=== PATIENT | male | born 1990 | race Caucasian/White ===

== ENCOUNTER 2019-01-06 13:30 | Emergency (ER) | payer OTHER ==
[~2019-01-06] VITALS: Ht 190.5 cm; Wt 142.9 kg
--- OUTSIDE RECORDS SUMMARY | 2019-01-06 13:32 | XMS REPORT | Continuity of Care Document ---
Author Author [employer] Organization [employer] Address Unknown Phone Unavailable Care Team Providers Care It Systems Manager Name Role Phone [employer] Unavailable Unavailable Problems No Data Provided for This Section Medications No Data Provided for This Section Allergies, Adverse Reactions, Alerts No Known Medication Allergies Immunizations No Data Provided for This Section Results No Data Provided for This Section Pathology Reports No Data Provided for This Section Diagnostic Reports No Data Provided for This Section Consultation Notes No Data Provided for This Section Discharge Summaries No Data Provided for This Section History and Physicals No Data Provided for This Section Vital Signs No Data Provided for This Section Encounters Location Location Details Encounter Type Encounter Number Reason For Visit Attending Provider ADM Date DC Date Status Source Outpatient [id number] [facility] 03/05/2015 Active [facility] Outpatient [id number] [facility] 12/01/2015 Active [facility] Procedures No Data Provided for This Section Assessment and Plan No Data Provided for This Section Plan of Care No Data Provided for This Section Social History No Data Provided for This Section Family History No Data Provided for This Section Advance Directives No Data Provided for This Section Functional Status No Data Provided for This Section
--- NOTE | 2019-01-06 15:26 | NUR ---
PATIENT BROUGHT TO TRIAGE. EVALUATED BY MELISSA Argueta
[2019-01-06] MEDS ORDERED: KETOROLAC TROMETHAMINE 60 MG/2 ML VIAL IM ONE (15:30)
[2019-01-06] MEDS ORDERED: KETOROLAC TROMETHAMINE 60 MG/2 ML VIAL ONE (15:34)
[2019-01-06] MEDS: KETOROLAC TROMETHAMINE 60 MG/2 ML VIAL IM ONE (15:35)
== END 2019-01-06 16:01 | disposition home or self-care (01) ==
LOC: ER 13:30
DX: M54.42 Lumbago with sciatica, left side (principal)
CPT/HCPCS: 99282; J1885

== ENCOUNTER 2019-01-24 19:09 | Emergency (ER) | payer OTHER ==
[~2019-01-24] VITALS: Ht 190.5 cm; Wt 142.9 kg
--- OUTSIDE RECORDS SUMMARY | 2019-01-24 19:11 | XMS REPORT | Continuity of Care Document ---
Author Author [employer] [facility] Organization [employer] [facility] Address Unknown Phone Unavailable Care Team Providers Care Photoengraving Proofer Apprentice Name Role Phone [facility] Unavailable Unavailable Problems No Data Provided for [...] ADM Date DC Date Status Source Outpatient [id number] [facility] 03/05/2015 Active [facility] Outpatient [id number] [facility] 12/01/2015 Active [facility] Procedures No Data Provided for This Section [...]
[2019-01-24 20:48] VITALS: BP 148/106
== END 2019-01-24 20:58 | disposition home or self-care (01) ==
LOC: ER 19:09
DX: L73.9 Follicular disorder, unspecified (principal); I10 Essential (primary) hypertension; I48.91 Unspecified atrial fibrillation
CPT/HCPCS: 93005; 99282

== ENCOUNTER → 2019-01-27 | Outpatient (CLI) | payer OTHER ==
--- NOTE | 2019-01-27 10:46 | Diagnostic Imaging Report ---
Left knee MRI without contrast. History: Knee pain. Decreased range of motion. Meniscus tear. Pain not responding to conservative management Comparison: None. Technique: Multiplanar multi-sequence MRI of the knee without contrast. Findings: Medial compartment: Mild degeneration of the medial meniscus without tear. The medial compartmental articular cartilage surfaces are slightly thinned with regions of fraying and fissuring. Small peripheral marginal osteophytes. The medial collateral ligament complex is intact Lateral compartment: The lateral meniscus is intact. The lateral compartmental articular cartilage surfaces are slightly thin. Small peripheral marginal osteophytes. The lateral collateral ligament complex is intact. Intercondylar notch: The ACL and PCL are intact. Patellofemoral compartment: Mild articular cartilage fraying and fissuring in the patellofemoral compartment. Extensor mechanism: The quadriceps and patellar tendons are normal. Other findings: There is a joint effusion and synovitis. There is no acute fracture, subluxation or avascular necrosis. Small Rojas's cyst. Mild scarring in Hoffa's fat. IMPRESSION: Mild tricompartmental degenerative arthrosis. No meniscal tear, collateral ligament tear or cruciate ligament tear. Small joint effusion, mild synovitis and small Rojas's cyst. Mild scarring in Hoffa's fat. Signed by: Dr. Hira Lara M.D. on 01/27/2019 10:43 AM
== END ==
LOC: MRI 08:45
PROVIDERS: ATTEND Specialist
DX: M54.42 Lumbago with sciatica, left side (principal); S83.222A Peripheral tear of medial meniscus, current injury, left knee, initial encounter

== ENCOUNTER 2019-02-15 12:21 | Emergency (ER) | payer OTHER ==
[~2019-02-15] VITALS: Ht 190.5 cm; Wt 142.9 kg
--- OUTSIDE RECORDS SUMMARY | 2019-02-15 12:25 | XMS REPORT | Continuity of Care Document ---
Author Author [employer] Organization [employer] Address Unknown Phone Unavailable Care Team Providers Care Guest Service Manager Name Role Phone [employer] Unavailable Unavailable Problems No Data Provided for [...] ADM Date DC Date Status Source Outpatient [id number] [facility] 03/05/2015 Active [facility] Outpatient [id number] [facility] 12/01/2015 Active [facility] Procedures No Data Provided for [...]
--- OUTSIDE RECORDS SUMMARY | 2019-02-15 12:25 | XMS REPORT ---
[facility] Address Unknown Phone Unavailable Care Team Providers Care Resawyer Name Role Phone LEANN RODRIGUES Unavailable Unavailable Problems This patient has no known problems. Allergies, Adverse Reactions, Alerts This patient has no known allergies or adverse reactions. Medications This patient has no known medications. Results Test Description Test Time Test Comments Text Results Atomic Results Result Comments MRI KNEE LEFT WO 2019-01-27 10:40:00 [place] [id number] [place] [id number] Patient Name: TALHA CHRISTENSEN MR #: [id number] : 1990 Age/Sex: 28/M Req #: [id number] Adm Physician: Ordered by: LEANN RODRIGUES MD Report #: [id number] Location: MRI Room/Bed: Procedure: [id number] MRI/MRI KNEE LEFT WO Exam Date: Exam Time: REPORT STATUS: Signed Left knee MRI without contrast. History: Knee pain. Decreased range of motion. Meniscus tear. Pain not responding to conservative management Comparison: None. Technique: Multiplanar multi-sequence MRI of the knee without contrast. Findings: Medial compartment: Mild degeneration of the medial meniscus without tear. The medial compartmental articular cartilage surfaces are slightly thinned with regions of fraying and fissuring. Small peripheral marginal osteophytes. The medial collateral ligament complex is intact Lateral compartment: The lateral meniscus is intact. The lateral compartmental articular cartilage surfaces are slightly thin. Small peripheral marginal osteophytes. The lateral collateral ligament complex is intact. Intercondylar notch: The ACL and PCL are intact. Patellofemoral compartment: Mild articular cartilage fraying and fissuring in the patellofemoral compartment. Extensor mechanism: The quadriceps and patellar tendons are normal. Other findings: There is a joint effusion and synovitis. There is no acute fracture, subluxation or avascular necrosis. Small Rojas's cyst. Mild scarring in Hoffa's fat. IMPRESSION: Mild tricompartmental degenerative arthrosis. No meniscal tear, collateral ligament tear or cruciate ligament tear. Small joint effusion, mild synovitis and small Rojas's cyst. Mild scarring in Hoffa's fat. Signed by: Dr. Hira Lara M.D. on 01/27/2019 10:43 AM Dictated By: HIRA LARA MD, MD [id number] Transcribed By: LINCOLN on 01/27/19 1043 COPY TO: LEANN RODRIGUES MD
[2019-02-15 12:37] VITALS: BP 140/84
== END 2019-02-15 12:43 | disposition home or self-care (01) ==
LOC: ER 12:21
DX: L02.811 Cutaneous abscess of head [any part, except face] (principal); I10 Essential (primary) hypertension; I48.91 Unspecified atrial fibrillation; M54.30 Sciatica, unspecified side
CPT/HCPCS: 99282

== ENCOUNTER 2019-05-17 17:21 | Emergency (ER) | payer SELFPAY ==
[~2019-05-17] VITALS: Ht 190.5 cm; Wt 142.9 kg
[2019-05-17] MEDS ORDERED: CLINDAMYCIN HC300 MG PO (17:42)
[2019-05-17] MEDS ORDERED: TYLENOL WITH C1 EACH PO (17:42)
== END 2019-05-17 17:54 | disposition home or self-care (01) ==
LOC: ER 17:21
DX: L03.113 Cellulitis of right upper limb (principal); L03.011 Cellulitis of right finger
CPT/HCPCS: 99283

== ENCOUNTER 2020-12-17 11:48 | Inpatient (IN) | payer SELFPAY ==
[~2020-12-17] VITALS: Ht 188 cm; Wt 113.4 kg
[~2020-12-17 11:48] MED LIST: CLINDAMYCIN HC300 MG PO; TYLENOL WITH C1 EACH PO
[2020-12-17] MEDS ORDERED: Vancomycin IV 1 GM in SODIUM CHLORIDE 0.9% 250ML 250 ML IV STA (12:14)
[2020-12-17] MEDS ORDERED: ONDANSETRON HCL INJ 2MG/ML 2ML 2 MG/ML VIAL IV STA (12:14)
[2020-12-17] MEDS ORDERED: SODIUM CHLORIDE 0.9% 1000ML 1,000 ML IV STA (12:14)
[2020-12-17] MEDS ORDERED: CEFEPIME 1 GM in SODIUM CHLORIDE 0.9% 50ML 50 ML IV SCH (12:14)
[2020-12-17 12:26] LABS: BASOPHILS % 0.2 % (0.0-1.0); EOSINOPHILS # (AUTO) 0.2 (0.0-0.4); EOSINOPHILS % 1.8 % (0.0-6.0); HEMATOCRIT 41.1 % (38.2-49.6); LYMPHOCYTES # (AUTO) 1.5 (1.0-3.2); LYMPHOCYTES % 14.8 % (18.0-39.1); MEAN CORPUSCULAR HEMOGLOBIN 29.8 pg (28-32); MEAN CORPUSCULAR HGB CONC 34.1 g/dL (31-35); MEAN CORPUSCULAR VOLUME 87.4 fL (81-99); MONOCYTES # (AUTO) 0.8 (0.2-0.8); MONOCYTES % 8.1 % (4.4-11.3); NEUTROPHILS # (AUTO) 7.6 (2.1-6.9); NEUTROPHILS % 74.7 % (38.7-80.0); PLATELET COUNT 173 x10e3/uL (140-360); RED CELL DISTRIBUTION WIDTH 13.4 % (11.7-14.4)
[2020-12-17] MEDS ORDERED: CEFEPIME HCL 1 GM VIAL ONE (12:36)
[2020-12-17] MEDS ORDERED: SODIUM CHLORIDE 0.9% 50ML 50 ML ONE (12:36)
[2020-12-17 12:47] LABS: ALBUMIN 3.5 g/dL (3.5-5.0); ALBUMIN/GLOBULIN RATIO 1.2 (0.8-2.0); ANION GAP 11.1 mmol/L (8-16); CALCIUM 8.1 mg/dL (8.4-10.2); POTASSIUM 4.1 mmol/L (3.5-5.1)
[2020-12-17] MEDS: MORPHINE SULFATE INJ 4 MG/ML INJ 1ML IV PRN ×2 (13:04→15:32)
[2020-12-17] MEDS ORDERED: KETOROLAC TROMETHAMINE 30 MG/ML VIAL IV STA (14:18)
[2020-12-17] MEDS: SODIUM CHLORIDE 0.9% 1000ML 1,000 ML IV SCH (15:31)
[2020-12-17 20:00] VITALS: BP 157/100
[2020-12-17] MEDS ORDERED: HYDROCODONE/APAP 5MG-325MG TAB PO PRN (20:00)
[2020-12-17 20:30] VITALS: BP 157/100
[2020-12-17 21:54] VITALS: BP 157/100
[2020-12-17] MEDS: PIPERACILLIN/TAZOBACTAM 3.375 GM in SODIUM CHLORIDE 0.9% 50ML 50 ML IV SCH (22:00)
[2020-12-18] VITALS (8 sets, daily range): BP systolic 150–168; BP diastolic 94–104
[2020-12-18] MEDS: SODIUM CHLORIDE 0.9% 1000ML 1,000 ML IV SCH ×3 (01:04→19:04)
[2020-12-18] MEDS ORDERED: MORPHINE SULFATE INJ 2 MG/ML SYR IV ONE (01:15)
[2020-12-18] MEDS: PIPERACILLIN/TAZOBACTAM 3.375 GM in SODIUM CHLORIDE 0.9% 50ML 50 ML IV SCH ×4 (04:00→22:03)
[2020-12-18 06:26] LABS: BASOPHILS % 0.1 % (0.0-1.0); EOSINOPHILS # (AUTO) 0.2 (0.0-0.4); EOSINOPHILS % 2.3 % (0.0-6.0); HEMATOCRIT 40.1 % (38.2-49.6); HEMOGLOBIN 13.8 g/dL (14.0-18.0); LYMPHOCYTES # (AUTO) 1.6 (1.0-3.2); LYMPHOCYTES % 15.5 % (18.0-39.1); MEAN CORPUSCULAR HGB CONC 34.4 g/dL (31-35); MEAN CORPUSCULAR VOLUME 87.2 fL (81-99); MONOCYTES # (AUTO) 0.9 (0.2-0.8); MONOCYTES % 8.3 % (4.4-11.3); NEUTROPHILS # (AUTO) 7.6 (2.1-6.9); NEUTROPHILS % 73.4 % (38.7-80.0); PLATELET COUNT 158 x10e3/uL (140-360); RED CELL DISTRIBUTION WIDTH 13.3 % (11.7-14.4)
[2020-12-18 06:48] LABS: ANION GAP 10.7 mmol/L (8-16); CALCIUM 7.9 mg/dL (8.4-10.2); CREATININE, SERUM 0.82 mg/dL (0.72-1.25); POTASSIUM 3.7 mmol/L (3.5-5.1)
[2020-12-18] MEDS ORDERED: Vancomycin IV 1.5 GM in SODIUM CHLORIDE 0.9% 500ML 500 ML IV SCH (09:00)
[2020-12-18] MEDS: HYDROCODONE/APAP 5MG-325MG TAB PO PRN ×2 (11:35→20:22)
[2020-12-18] MEDS ORDERED: CHLORTHALIDONE 25 MG TAB PO PRN (12:00)
[2020-12-18] MEDS ORDERED: MIDAZOLAM HCL 2 MG/2 ML VIAL ONE (12:23)
[2020-12-18] MEDS ORDERED: FENTANYL CITRATE/PF 100MCG/2 ML INJ ONE (12:23)
[2020-12-18] MEDS ORDERED: MORPHINE SULFATE INJ 4 MG/ML INJ 1ML IV PRN (12:30)
[2020-12-18] MEDS ORDERED: PROPOFOL IV EMULSION 10 MG/ML 20 ML VIAL ONE (13:50)
[2020-12-18] MEDS ORDERED: LIDOCAINE HCL 2% LOCAL INJ 5 ML SDV VIAL INJ ONE (13:50)
[2020-12-18] MEDS ORDERED: GLYCOPYRROLATE INJ 0.2 MG/ML VIAL ONE (13:50)
[2020-12-18] MEDS ORDERED: ONDANSETRON HCL INJ 2MG/ML 2ML 2 MG/ML VIAL ONE (13:50)
[2020-12-18] MEDS ORDERED: DEXAMETHASONE SOD PHOS INJ 4 MG/ML VIAL ONE (13:50)
[2020-12-18] MEDS ORDERED: SEVOFLURANE INHAL SOLN 250 ML PEN BTL ONE (13:50)
[2020-12-18] MEDS ORDERED: POVIDONE IODINE 0.05% 0.05 % ML PO ONE (13:50)
[2020-12-18] MEDS: KETOROLAC TROMETHAMINE 30 MG/ML VIAL IV PRN ×2 (14:18→22:23)
[2020-12-18] MEDS: VANCOMYCIN 300 ML IV SCH (20:22)
[2020-12-19] VITALS: BP 148/95
[2020-12-19] MEDS: PIPERACILLIN/TAZOBACTAM 3.375 GM in SODIUM CHLORIDE 0.9% 50ML 50 ML IV SCH (03:42)
[2020-12-19 04:00] VITALS: BP 159/96
[2020-12-19] MEDS: SODIUM CHLORIDE 0.9% 1000ML 1,000 ML IV SCH (04:49)
[2020-12-19] MEDS: HYDROCODONE/APAP 5MG-325MG TAB PO PRN ×2 (04:49→12:09)
[2020-12-19 06:50] LABS: BASOPHILS % 0.2 % (0.0-1.0); EOSINOPHILS # (AUTO) 0.1 (0.0-0.4); EOSINOPHILS % 0.8 % (0.0-6.0); HEMATOCRIT 38.7 % (38.2-49.6); HEMOGLOBIN 13.5 g/dL (14.0-18.0); LYMPHOCYTES # (AUTO) 1.8 (1.0-3.2); LYMPHOCYTES % 17.1 % (18.0-39.1); MEAN CORPUSCULAR HEMOGLOBIN 29.9 pg (28-32); MEAN CORPUSCULAR HGB CONC 34.9 g/dL (31-35); MEAN CORPUSCULAR VOLUME 85.6 fL (81-99); MONOCYTES # (AUTO) 0.7 (0.2-0.8); NEUTROPHILS # (AUTO) 7.9 (2.1-6.9); NEUTROPHILS % 74.4 % (38.7-80.0); PLATELET COUNT 171 x10e3/uL (140-360); RED BLOOD COUNT 4.52 x10e6/uL (4.3-5.7)
[2020-12-19 07:17] LABS: ANION GAP 8.8 mmol/L (8-16); CALCIUM 8.4 mg/dL (8.4-10.2); CREATININE, SERUM 0.88 mg/dL (0.72-1.25); POTASSIUM 3.8 mmol/L (3.5-5.1)
[2020-12-19 08:04] VITALS: BP 155/92
[2020-12-19] MEDS: VANCOMYCIN 300 ML IV SCH (08:45)
[2020-12-19] MEDS: KETOROLAC TROMETHAMINE 30 MG/ML VIAL IV PRN (08:48)
[2020-12-19 08:50] VITALS: BP 155/92
[2020-12-19 11:50] VITALS: BP 167/110
[2020-12-19] MEDS ORDERED: HYDRALAZINE HCL 20 MG/ML VIAL IV PRN (13:30)
== END 2020-12-19 14:07 | disposition left against medical advice (07) | DRG 902 ==
LOC: ER 12:00 → ERHOLD 15:42 → MED/SURG3 18:43 → OBSVTOIN 12-18 10:37
PROVIDERS: ADMIT Internal Medicine; ATTEND Internal Medicine
PROC: 0JBH0ZZ Excision of Left Lower Arm Subcutaneous Tissue and Fascia, Open Approach (ICD-10-PCS; principal; 2020-12-18 10:00)
DX: T63.301A Toxic effect of unspecified spider venom, accidental (unintentional), initial encounter (principal); L03.114 Cellulitis of left upper limb; L02.414 Cutaneous abscess of left upper limb; Z20.822 Contact with and (suspected) exposure to COVID-19; R03.0 Elevated blood-pressure reading, without diagnosis of hypertension; B95.8 Unspecified staphylococcus as the cause of diseases classified elsewhere
CPT/HCPCS: 36415; 80048; 80053; 83605; 85025; 87040; 87071; 87075; 87186; 87205; 96361; 96366; 99284; G0378; J0692; J1100; J1885; J2001; J2250; J2270; J2405; J2543; J3010; J3370; J7030; J7040; J7050; U0002